=== PATIENT | female | born 1935 | race Caucasian/White ===

== ENCOUNTER → 2017-01-29 | Outpatient (CLI) | payer MEDICARE ==
[~2017-01-29] MED LIST: ACET325T14 PO; AZIT500T PO; BENA10TA2 PO; BENA5TAB2 PO; BISA10SU54 PR; CEFD300C37 PO; CHOL100018 PO; CITA20TA9 PO; GUAI600T53 PO; HYDR-3240 PO; IPRA3AMP INH; POLY17PO5 PO; PRED20TA PO; PRED5TAB19 PO; SIMV20TA3 PO
== END | disposition home or self-care (01) ==
LOC: CFH 08:31
PROVIDERS: ATTEND Internal Medicine
DX: Z12.31 Encounter for screening mammogram for malignant neoplasm of breast (principal); M81.0 Age-related osteoporosis without current pathological fracture; N95.9 Unspecified menopausal and perimenopausal disorder
CPT/HCPCS: 77080; G0202

== ENCOUNTER 2017-07-21 07:19 | Inpatient (IN) | payer MEDICARE ==
[~2017-07-21] VITALS: Ht 162.6 cm; Wt 68.6 kg
[~2017-07-21 07:19] MED LIST changes: +BISA10SU65 PR; +CALC-666 PO; +CHOL100012 PO; -CHOL100018 PO; +ENOX40SY4 SQ; -GUAI600T53 PO; +GUAI600T80 PO
[2017-07-21] MEDS ORDERED: PANTOPRAZOLE 80 MG in SODIUM CHLORIDE 0.9% 50 ML IVPB ONE (07:27)
[2017-07-21] MEDS ORDERED: PANTOPRAZOLE 80 MG in SODIUM CHLORIDE 0.9% 100 ML IV SCH (07:27)
[2017-07-21] MEDS ORDERED: SODIUM CHLORIDE 0.9% 1,000ML IVBOLUS ONE (07:30)
[2017-07-21] MEDS ORDERED: ONDANSETRON 2MG/ML, 2ML IVPush ONE (07:30)
[2017-07-21] MEDS ORDERED: SODIUM CHLORIDE FLUSH 10ML SYR IVF ONE (07:30)
[2017-07-21 07:56] LABS: MEAN CORPUSCULAR HEMOGLOBIN 29.9 pg (27.0-34.8); MEAN CORPUSCULAR HGB CONC 32.8 g/dL (32.4-35.8); MEAN PLATELET VOLUME 7.5 fL (7.4-10.4); PLATELET COUNT 644 x10^3/uL (130-400); RED BLOOD COUNT 4.42 x10^6/uL (3.82-5.3); RED CELL DISTRIBUTION WIDTH 15.6 % (9.6-15.2)
[2017-07-21 08:04] LABS: ALANINE AMINOTRANSFERASE 24 U/L (12-78); ALBUMIN 2.8 g/dL (3.4-5.0); ANION GAP 9 mmol/L (5-15); CALCIUM 8.9 mg/dL (8.5-10.1); CHLORIDE 102 mmol/L (98-107); CREATININE 1.28 mg/dL (0.55-1.02)
[2017-07-21 08:07] LABS: ALKALINE PHOSPHATASE 72 U/L (45-117); BILIRUBIN,TOTAL 1.4 mg/dL (0.2-1.0); INTERNATIONAL NORMALIZED RATIO 1.05 (0.93-1.1); PROTHROMBIN TIME 10.8 Seconds (9.6-11.5); TOTAL PROTEIN 6.3 g/dL (6.4-8.2)
[2017-07-21] MEDS ORDERED: ONDANSETRON 2MG/ML, 2ML ONE (08:09)
[2017-07-21 08:21] LABS: BASOPHILS # (AUTO) 0.01 x10^3/uL (0-0.1); BASOPHILS % (AUTO) 0 % (0-1); EOSINOPHILS % (AUTO) 0 % (1-7); LYMPHOCYTES # (AUTO) 0.68 x10^3/uL (1-3.4); LYMPHOCYTES % (AUTO) 4 % (22-44); MD SCAN; MONOCYTES # (AUTO) 0.34 x10^3/uL (0.2-0.8); MONOCYTES % (AUTO) 2 % (2-9); NEUTROPHILS # (AUTO) 17.35 x10^3/uL (1.8-6.8); NEUTROPHILS % (AUTO) 94 % (42-75)
[2017-07-21 08:24] LABS: CULTURE INDICATED? YES; MICROSCOPIC INDICATED
[2017-07-21] MEDS ORDERED: ACET650S21 PO (08:54)
[2017-07-21] MEDS ORDERED: ASPI-515 PO (08:54)
[2017-07-21] MEDS ORDERED: MULT-155 PO (08:54)
[2017-07-21] MEDS ORDERED: ONDA4TAB10 PO (08:54)
[2017-07-21] MEDS ORDERED: CEFTRIAXONE PMX 1GM/50ML 50 ML IVPB ONE (10:30)
[2017-07-21 11:24] VITALS: BP 119/90
[2017-07-21] MEDS ORDERED: POLYETHYLENE GLYCOL 17 GM PACKET PO PRN (13:00)
[2017-07-21] MEDS ORDERED: HYDROcodone/APAP 5/325 TABLET PO PRN (13:00)
[2017-07-21] MEDS: SUCRALFATE 1 GM/10 ML UDC PO SCH ×3 (13:00→20:27)
[2017-07-21] MEDS ORDERED: ACETAMINOPHEN 325 MG TABLET PO PRN (13:00)
[2017-07-21] MEDS ORDERED: hydrALAzine 20 MG/ML, 1ML IVPush PRN (13:00)
[2017-07-21] MEDS: SODIUM CHLORIDE 0.9% 1,000 ML IV SCH (13:16)
[2017-07-21] MEDS: CEFTRIAXONE PMX 1GM/50ML 50 ML IV SCH (13:16)
[2017-07-21 14:10] LABS: FREE T4 (FREE THYROXINE) 1.43 ng/dL (0.76-1.46); THYROID STIMULATING HORMONE 0.983 mIU/L (0.358-3.740)
[2017-07-21 14:26] LABS: HEMOGLOBIN A1C 5.3 % (4.2-6.3)
[2017-07-21 14:37] VITALS: BP 111/76
[2017-07-21] MEDS ORDERED: LIDOCAINE 2%, 20ML ONE (14:55)
[2017-07-21 17:06] LABS: CELLS COUNTED 18
[2017-07-21] MEDS: FLUCONAZOLE 200 MG/100 ML 100 ML IV SCH (17:46)
[2017-07-21 20:10] VITALS: BP 125/95
[2017-07-21] MEDS: CITALOPRAM 20 MG TABLET PO SCH (20:16)
[2017-07-21] MEDS: SIMVASTATIN 20 MG TABLET PO SCH (20:16)
[2017-07-21] MEDS: BENAZEPRIL 5 MG TABLET PO SCH (20:16)
[2017-07-21] MEDS: PANTOPRAZOLE 40 MG IV IVPush SCH (20:27)
[2017-07-21] MEDS ORDERED: ALBUTEROL/IPRATROPIUM 2.5MG/0.5MG, 3 ML ONE (20:59)
[2017-07-21] MEDS ORDERED: ALBUTEROL/IPRATROPIUM 2.5MG/0.5MG, 3 ML NPPB PRN (21:00)
[2017-07-21] MEDS: ALBUTEROL/IPRATROPIUM 2.5MG/0.5MG, 3 ML NPPB SCH (21:01)
[2017-07-22 01:14] VITALS: BP 145/90
[2017-07-22] MEDS: SODIUM CHLORIDE 0.9% 1,000 ML IV SCH ×2 (03:58→18:50)
[2017-07-22] MEDS: ONDANSETRON 2MG/ML, 2ML IVPush PRN ×2 (05:22→10:30)
[2017-07-22 05:56] LABS: CHLORIDE 105 mmol/L (98-107)
[2017-07-22 06:00] LABS: MEAN CORPUSCULAR HEMOGLOBIN 30.3 pg (27.0-34.8); MEAN CORPUSCULAR HGB CONC 32.9 g/dL (32.4-35.8); MEAN CORPUSCULAR VOLUME 92.1 fL (80-100); MEAN PLATELET VOLUME 7.5 fL (7.4-10.4); PLATELET COUNT 488 x10^3/uL (130-400); RED BLOOD COUNT 3.95 x10^6/uL (3.82-5.3); RED CELL DISTRIBUTION WIDTH 16.1 % (9.6-15.2)
[2017-07-22 06:19] LABS: ALANINE AMINOTRANSFERASE 19 U/L (12-78); ALBUMIN 2.5 g/dL (3.4-5.0); ALKALINE PHOSPHATASE 76 U/L (45-117); ANION GAP 11 mmol/L (5-15); BILIRUBIN,TOTAL 1.3 mg/dL (0.2-1.0); CALCIUM 7.5 mg/dL (8.5-10.1); CREATININE 1.66 mg/dL (0.55-1.02); TOTAL PROTEIN 5.4 g/dL (6.4-8.2)
[2017-07-22 06:35] LABS: MD YES
[2017-07-22 06:39] LABS: BAND#(MANUAL) 0.47 x10^3/uL; BANDS%(MANUAL) 2 % (0-7); LYMPH#(MANUAL) 0.71 x10^3/uL (1-3.4); LYMPHS% (MANUAL) 3 % (22-44); MONOS#(MANUAL) 1.19 x10^3/uL (0.3-2.7); MONOS% (MANUAL) 5 % (2-9); SEG#(MANUAL) 21.33 x10^3/uL (1.8-6.8); SEGS% (MANUAL) 90 % (42-75)
[2017-07-22 06:41] LABS: <PLATELET ESTIMATE> INCREASED; <PLT MORPHOLOGY> NORMAL PLT MORPH; POLYCHROMASIA 1+
[2017-07-22] MEDS: METRONIDAZOLE PMX 500MG/100ML 100 ML IV SCH ×3 (07:30→18:50)
[2017-07-22 07:36] VITALS: BP 138/93
[2017-07-22] MEDS: ALBUTEROL/IPRATROPIUM 2.5MG/0.5MG, 3 ML NPPB SCH ×4 (07:40→19:05)
[2017-07-22] MEDS: SUCRALFATE 1 GM/10 ML UDC PO SCH ×4 (10:22→20:47)
[2017-07-22] MEDS: PANTOPRAZOLE 40 MG IV IVPush SCH ×2 (10:22→20:47)
[2017-07-22] MEDS: morphine SULFATE 10 MG/ML, 1ML IVPush PRN ×3 (10:22→23:29)
[2017-07-22] MEDS: MAALOX/HYOSCYAMINE/LIDOCAINE 45 ML BTL PO PRN ×2 (10:23→14:59)
[2017-07-22] MEDS: CEFTRIAXONE PMX 1GM/50ML 50 ML IV SCH (13:30)
[2017-07-22 14:02] VITALS: BP 127/82
[2017-07-22 20:45] VITALS: BP 101/72
[2017-07-22] MEDS: BENAZEPRIL 5 MG TABLET PO SCH (20:47)
[2017-07-22] MEDS: CITALOPRAM 20 MG TABLET PO SCH (20:47)
[2017-07-22] MEDS: SIMVASTATIN 20 MG TABLET PO SCH (20:48)
[2017-07-23] MEDS: ONDANSETRON 2MG/ML, 2ML IVPush PRN ×2 (02:02→11:10)
[2017-07-23] MEDS: MAALOX/HYOSCYAMINE/LIDOCAINE 45 ML BTL PO PRN (02:02)
[2017-07-23 02:11] VITALS: BP 140/95
[2017-07-23] MEDS: METRONIDAZOLE PMX 500MG/100ML 100 ML IV SCH ×3 (02:17→19:22)
[2017-07-23] MEDS: SODIUM CHLORIDE 0.9% 1,000 ML IV SCH (04:22)
[2017-07-23] MEDS: morphine SULFATE 10 MG/ML, 1ML IVPush PRN (04:22)
[2017-07-23 04:54] LABS: MEAN CORPUSCULAR HEMOGLOBIN 30.5 pg (27.0-34.8); MEAN CORPUSCULAR HGB CONC 33.4 g/dL (32.4-35.8); MEAN CORPUSCULAR VOLUME 91.5 fL (80-100); MEAN PLATELET VOLUME 7.7 fL (7.4-10.4); PLATELET COUNT 377 x10^3/uL (130-400); RED BLOOD COUNT 3.44 x10^6/uL (3.82-5.3); RED CELL DISTRIBUTION WIDTH 16.9 % (9.6-15.2)
[2017-07-23 04:58] LABS: ALANINE AMINOTRANSFERASE 16 U/L (12-78); ALBUMIN 2.5 g/dL (3.4-5.0); ANION GAP 9 mmol/L (5-15); CHLORIDE 111 mmol/L (98-107)
[2017-07-23 05:01] LABS: ALKALINE PHOSPHATASE 77 U/L (45-117); BILIRUBIN,TOTAL 1.1 mg/dL (0.2-1.0); CREATININE 1.21 mg/dL (0.55-1.02); TOTAL PROTEIN 5.6 g/dL (6.4-8.2)
[2017-07-23 05:43] LABS: BASOPHILS # (AUTO) 0.01 x10^3/uL (0-0.1); BASOPHILS % (AUTO) 0 % (0-1); EOSINOPHILS % (AUTO) 0 % (1-7); LYMPHOCYTES # (AUTO) 0.59 x10^3/uL (1-3.4); LYMPHOCYTES % (AUTO) 3 % (22-44); MD SCAN; MONOCYTES # (AUTO) 0.13 x10^3/uL (0.2-0.8); MONOCYTES % (AUTO) 1 % (2-9); NEUTROPHILS # (AUTO) 22.25 x10^3/uL (1.8-6.8); NEUTROPHILS % (AUTO) 97 % (42-75)
[2017-07-23] MEDS: SUCRALFATE 1 GM/10 ML UDC PO SCH ×4 (07:00→19:56)
[2017-07-23] MEDS: ALBUTEROL/IPRATROPIUM 2.5MG/0.5MG, 3 ML NPPB SCH (07:00)
[2017-07-23 07:36] VITALS: BP 157/100
[2017-07-23 09:30] VITALS: BP 132/90
[2017-07-23] MEDS: PANTOPRAZOLE 40 MG IV IVPush SCH ×2 (10:17→19:53)
[2017-07-23] MEDS: DEXTROSE 5% 1,000 ML IV SCH (11:10)
[2017-07-23] MEDS ORDERED: LACTULOSE 3.3 GM/5 ML ORAL.SOL RC ONE (11:30)
[2017-07-23] MEDS: CEFTRIAXONE PMX 1GM/50ML 50 ML IV SCH (13:14)
[2017-07-23 13:33] VITALS: BP 136/87
[2017-07-23] MEDS ORDERED: PROPOFOL 10 MG/ML, 20ML ONE (14:33)
[2017-07-23] MEDS ORDERED: FENTANYL PF 100 MCG/2ML IV PRN (15:30)
[2017-07-23] MEDS ORDERED: HYDROcodone/APAP 7.5-325MG/15ML UDC PO PRN (15:30)
[2017-07-23] MEDS ORDERED: ACETAMINOPHEN 325 MG TABLET PO PRN (15:30)
[2017-07-23] MEDS ORDERED: ONDANSETRON 2MG/ML, 2ML IVPush PRN (15:30)
[2017-07-23] MEDS ORDERED: OXYcodone 5 MG/5 ML ORAL.SOL UDC PO PRN (15:30)
[2017-07-23] MEDS: FLUCONAZOLE 200 MG/100 ML 100 ML IV SCH (18:00)
[2017-07-23] MEDS: BENAZEPRIL 5 MG TABLET PO SCH (19:54)
[2017-07-23] MEDS: SIMVASTATIN 20 MG TABLET PO SCH (19:54)
[2017-07-23] MEDS: CITALOPRAM 20 MG TABLET PO SCH (19:54)
[2017-07-23 20:00] VITALS: BP 118/84
[2017-07-24 01:53] VITALS: BP 114/64
[2017-07-24] MEDS: METRONIDAZOLE PMX 500MG/100ML 100 ML IV SCH ×3 (03:23→20:40)
[2017-07-24] MEDS: TEMAZEPAM 15 MG CAPSULE PO PRN (03:26)
[2017-07-24 07:09] LABS: MEAN CORPUSCULAR HEMOGLOBIN 29.8 pg (27.0-34.8); MEAN CORPUSCULAR HGB CONC 32.7 g/dL (32.4-35.8); MEAN CORPUSCULAR VOLUME 91.3 fL (80-100); MEAN PLATELET VOLUME 7.3 fL (7.4-10.4); PLATELET COUNT 282 x10^3/uL (130-400); RED BLOOD COUNT 2.96 x10^6/uL (3.82-5.3); RED CELL DISTRIBUTION WIDTH 17.1 % (9.6-15.2)
[2017-07-24 07:16] LABS: ALANINE AMINOTRANSFERASE 15 U/L (12-78); ALBUMIN 2.2 g/dL (3.4-5.0); ANION GAP 5 mmol/L (5-15); CALCIUM 6.9 mg/dL (8.5-10.1); CHLORIDE 111 mmol/L (98-107)
[2017-07-24 07:18] LABS: ALKALINE PHOSPHATASE 71 U/L (45-117); TOTAL PROTEIN 4.7 g/dL (6.4-8.2)
[2017-07-24 07:31] LABS: CREATININE 0.74 mg/dL (0.55-1.02)
[2017-07-24 07:32] VITALS: BP 134/79
[2017-07-24 08:26] LABS: BASOPHILS % (AUTO) 0 % (0-1); EOSINOPHILS # (AUTO) 0.01 x10^3/uL (0-0.4); EOSINOPHILS % (AUTO) 0 % (1-7); LYMPHOCYTES # (AUTO) 0.63 x10^3/uL (1-3.4); LYMPHOCYTES % (AUTO) 4 % (22-44); MD SCAN; MONOCYTES # (AUTO) 0.04 x10^3/uL (0.2-0.8); MONOCYTES % (AUTO) 0 % (2-9); NEUTROPHILS # (AUTO) 15.72 x10^3/uL (1.8-6.8); NEUTROPHILS % (AUTO) 96 % (42-75)
[2017-07-24] MEDS: SUCRALFATE 1 GM/10 ML UDC PO SCH ×4 (08:56→20:15)
[2017-07-24] MEDS: PANTOPRAZOLE 40 MG IV IVPush SCH ×2 (09:16→20:58)
[2017-07-24 09:40] VITALS: BP 130/90
[2017-07-24] MEDS: DEXTROSE 5% 1,000 ML IV SCH (10:15)
[2017-07-24] MEDS: MICAFUNGIN 100 MG in SODIUM CHLORIDE 0.9% 100 ML IV SCH (10:21)
[2017-07-24] MEDS: CEFTRIAXONE PMX 1GM/50ML 50 ML IV SCH (13:18)
[2017-07-24 13:20] VITALS: BP 154/86
[2017-07-24] MEDS: POTASSIUM PHOSPHATE 44 MEQ in SODIUM CHLORIDE 0.9% 500 ML IV SCH (15:57)
[2017-07-24] MEDS ORDERED: LACTULOSE 3.3 GM/5 ML ORAL.SOL RC ONE ×2 (16:30→17:00)
[2017-07-24] MEDS ORDERED: ALBUTEROL SULFATE 2.5MG/0.5ML NPPB PRN (17:00)
[2017-07-24] MEDS ORDERED: ALBUTEROL/IPRATROPIUM 2.5MG/0.5MG, 3 ML NPPB PRN (17:30)
[2017-07-24] MEDS: SIMETHICONE 80 MG CHEW TAB PO SCH ×2 (18:37→22:00)
[2017-07-24 20:20] VITALS: BP 119/80
[2017-07-24] MEDS: SIMVASTATIN 20 MG TABLET PO SCH (20:41)
[2017-07-24] MEDS: CITALOPRAM 20 MG TABLET PO SCH (20:42)
[2017-07-24] MEDS: BENAZEPRIL 5 MG TABLET PO SCH (20:57)
[2017-07-24] MEDS: ALBUTEROL/IPRATROPIUM 2.5MG/0.5MG, 3 ML NPPB SCH (21:00)
[2017-07-25] MEDS: POTASSIUM PHOSPHATE 44 MEQ in SODIUM CHLORIDE 0.9% 500 ML IV SCH (00:17)
[2017-07-25 02:00] VITALS: BP 135/84
[2017-07-25] MEDS: METRONIDAZOLE PMX 500MG/100ML 100 ML IV SCH ×3 (03:49→21:00)
[2017-07-25] MEDS: DEXTROSE 5% 1,000 ML IV SCH ×2 (03:52→15:11)
[2017-07-25 06:33] LABS: MEAN CORPUSCULAR HEMOGLOBIN 30.1 pg (27.0-34.8); MEAN CORPUSCULAR HGB CONC 32.9 g/dL (32.4-35.8); MEAN CORPUSCULAR VOLUME 91.3 fL (80-100); MEAN PLATELET VOLUME 7.5 fL (7.4-10.4); PLATELET COUNT 271 x10^3/uL (130-400); RED BLOOD COUNT 2.92 x10^6/uL (3.82-5.3); RED CELL DISTRIBUTION WIDTH 16.2 % (9.6-15.2)
[2017-07-25 06:34] LABS: ALBUMIN 2.1 g/dL (3.4-5.0); ANION GAP 7 mmol/L (5-15); CALCIUM 7.2 mg/dL (8.5-10.1); CHLORIDE 110 mmol/L (98-107)
[2017-07-25] MEDS: ALBUTEROL/IPRATROPIUM 2.5MG/0.5MG, 3 ML NPPB SCH ×3 (06:49→19:53)
[2017-07-25 06:50] LABS: ALANINE AMINOTRANSFERASE 12 U/L (12-78); ALKALINE PHOSPHATASE 71 U/L (45-117); BILIRUBIN,TOTAL 1.1 mg/dL (0.2-1.0); CREATININE 0.52 mg/dL (0.55-1.02); TOTAL PROTEIN 4.8 g/dL (6.4-8.2)
[2017-07-25 07:05] LABS: BASOPHILS % (AUTO) 0 % (0-1); EOSINOPHILS # (AUTO) 0.04 x10^3/uL (0-0.4); EOSINOPHILS % (AUTO) 0 % (1-7); LYMPHOCYTES # (AUTO) 0.69 x10^3/uL (1-3.4); LYMPHOCYTES % (AUTO) 4 % (22-44); MD SCAN; MONOCYTES # (AUTO) 0.58 x10^3/uL (0.2-0.8); MONOCYTES % (AUTO) 4 % (2-9); NEUTROPHILS # (AUTO) 14.52 x10^3/uL (1.8-6.8); NEUTROPHILS % (AUTO) 92 % (42-75)
[2017-07-25 07:20] VITALS: BP 122/81
[2017-07-25 08:51] LABS: CHOL/HDL RATIO 1.8; LDL/HDL RATIO 0.4 (0.5-3.0)
[2017-07-25] MEDS: SIMETHICONE 80 MG CHEW TAB PO SCH ×3 (09:51→22:31)
[2017-07-25] MEDS: MICAFUNGIN 100 MG in SODIUM CHLORIDE 0.9% 100 ML IV SCH (09:51)
[2017-07-25] MEDS: SUCRALFATE 1 GM/10 ML UDC PO SCH ×4 (09:52→22:30)
[2017-07-25] MEDS: PANTOPRAZOLE 40 MG IV IVPush SCH ×2 (09:52→22:31)
[2017-07-25] MEDS: CEFTRIAXONE PMX 1GM/50ML 50 ML IV SCH (13:37)
[2017-07-25 13:44] VITALS: BP 115/75
[2017-07-25 18:47] VITALS: BP 144/86
[2017-07-25] MEDS: BENAZEPRIL 5 MG TABLET PO SCH (22:20)
[2017-07-25] MEDS: CITALOPRAM 20 MG TABLET PO SCH (22:31)
[2017-07-25] MEDS: SIMVASTATIN 20 MG TABLET PO SCH (22:31)
[2017-07-26 03:25] VITALS: BP 109/73
[2017-07-26] MEDS: DEXTROSE 5% 1,000 ML IV SCH ×2 (04:00→20:30)
[2017-07-26] MEDS: METRONIDAZOLE PMX 500MG/100ML 100 ML IV SCH ×3 (05:23→23:47)
[2017-07-26 05:59] LABS: BASOPHILS # (AUTO) 0.05 x10^3/uL (0-0.1); BASOPHILS % (AUTO) 0 % (0-1); EOSINOPHILS # (AUTO) 0.17 x10^3/uL (0-0.4); EOSINOPHILS % (AUTO) 1 % (1-7); LYMPHOCYTES % (AUTO) 5 % (22-44); MD NO; MEAN CORPUSCULAR HEMOGLOBIN 29.9 pg (27.0-34.8); MEAN CORPUSCULAR VOLUME 90.9 fL (80-100); MEAN PLATELET VOLUME 7.7 fL (7.4-10.4); MONOCYTES % (AUTO) 4 % (2-9); NEUTROPHILS # (AUTO) 12.89 x10^3/uL (1.8-6.8); NEUTROPHILS % (AUTO) 90 % (42-75); PLATELET COUNT 280 x10^3/uL (130-400); RED BLOOD COUNT 3.14 x10^6/uL (3.82-5.3); RED CELL DISTRIBUTION WIDTH 16.1 % (9.6-15.2)
[2017-07-26 06:21] LABS: ALBUMIN 1.9 g/dL (3.4-5.0); ANION GAP 5 mmol/L (5-15); CALCIUM 7.9 mg/dL (8.5-10.1); CHLORIDE 107 mmol/L (98-107)
[2017-07-26 06:25] LABS: ALANINE AMINOTRANSFERASE 10 U/L (12-78); ALKALINE PHOSPHATASE 73 U/L (45-117); BILIRUBIN,TOTAL 0.9 mg/dL (0.2-1.0); CREATININE 0.55 mg/dL (0.55-1.02); TOTAL PROTEIN 4.7 g/dL (6.4-8.2)
[2017-07-26 08:30] VITALS: BP 102/62
[2017-07-26] MEDS: MICAFUNGIN 100 MG in SODIUM CHLORIDE 0.9% 100 ML IV SCH (09:06)
[2017-07-26] MEDS: PANTOPRAZOLE 40 MG IV IVPush SCH ×2 (09:07→20:29)
[2017-07-26] MEDS: SUCRALFATE 1 GM/10 ML UDC PO SCH ×4 (09:07→20:29)
[2017-07-26] MEDS: SIMETHICONE 80 MG CHEW TAB PO SCH ×3 (09:07→20:29)
[2017-07-26] MEDS: ALBUTEROL/IPRATROPIUM 2.5MG/0.5MG, 3 ML NPPB SCH ×3 (10:40→20:15)
[2017-07-26] MEDS: CEFTRIAXONE PMX 1GM/50ML 50 ML IV SCH (14:12)
[2017-07-26 14:30] VITALS: BP 104/73
[2017-07-26 20:18] VITALS: BP 107/74
[2017-07-26] MEDS: BENAZEPRIL 5 MG TABLET PO SCH (20:29)
[2017-07-26] MEDS: SIMVASTATIN 20 MG TABLET PO SCH (20:29)
[2017-07-26] MEDS: TEMAZEPAM 15 MG CAPSULE PO PRN (20:29)
[2017-07-26] MEDS: CITALOPRAM 20 MG TABLET PO SCH (20:29)
[2017-07-27] MEDS: ALBUTEROL/IPRATROPIUM 2.5MG/0.5MG, 3 ML NPPB SCH ×4 (02:05→21:29)
[2017-07-27 02:07] VITALS: BP 142/87
[2017-07-27] MEDS: SUCRALFATE 1 GM/10 ML UDC PO SCH ×4 (06:36→20:41)
[2017-07-27 08:16] VITALS: BP 118/82
[2017-07-27] MEDS: SIMETHICONE 80 MG CHEW TAB PO SCH ×3 (09:16→20:42)
[2017-07-27] MEDS: METRONIDAZOLE PMX 500MG/100ML 100 ML IV SCH ×3 (09:16→23:51)
[2017-07-27] MEDS: PANTOPRAZOLE 40 MG IV IVPush SCH ×2 (09:16→20:41)
[2017-07-27] MEDS: MICAFUNGIN 100 MG in SODIUM CHLORIDE 0.9% 100 ML IV SCH (11:21)
[2017-07-27] MEDS: CEFTRIAXONE PMX 1GM/50ML 50 ML IV SCH (13:00)
[2017-07-27 13:38] VITALS: BP 127/85
[2017-07-27 20:15] VITALS: BP 125/86
[2017-07-27] MEDS: CITALOPRAM 20 MG TABLET PO SCH (20:41)
[2017-07-27] MEDS: SIMVASTATIN 20 MG TABLET PO SCH (20:42)
[2017-07-27] MEDS: BENAZEPRIL 5 MG TABLET PO SCH (20:42)
[2017-07-27] MEDS: DEXTROSE 5% 1,000 ML IV SCH (20:42)
[2017-07-28 01:41] VITALS: BP 109/74
[2017-07-28] MEDS: SUCRALFATE 1 GM/10 ML UDC PO SCH ×4 (06:30→20:48)
[2017-07-28 06:59] VITALS: BP 118/80
[2017-07-28] MEDS: SIMETHICONE 80 MG CHEW TAB PO SCH ×3 (08:45→20:49)
[2017-07-28] MEDS: PANTOPRAZOLE 40 MG IV IVPush SCH (08:45)
[2017-07-28] MEDS: METRONIDAZOLE PMX 500MG/100ML 100 ML IV SCH ×3 (09:08→23:45)
[2017-07-28] MEDS: MICAFUNGIN 100 MG in SODIUM CHLORIDE 0.9% 100 ML IV SCH (10:23)
[2017-07-28] MEDS: ALBUTEROL/IPRATROPIUM 2.5MG/0.5MG, 3 ML NPPB SCH ×3 (11:30→19:41)
[2017-07-28 12:57] VITALS: BP 113/80
[2017-07-28] MEDS ORDERED: Maalox/Hyoscyamine/Lidocaine PO (13:42)
[2017-07-28] MEDS ORDERED: MICA100V3 IV (13:42)
[2017-07-28] MEDS ORDERED: OMEP-110 PO (13:42)
[2017-07-28] MEDS ORDERED: SUCR1ORA5 PO (13:42)
[2017-07-28] MEDS ORDERED: SIME80TA16 PO (13:42)
[2017-07-28] MEDS ORDERED: POLY17PO5 PO (13:42)
[2017-07-28] MEDS: CEFTRIAXONE PMX 1GM/50ML 50 ML IV SCH (13:43)
[2017-07-28] MEDS ORDERED: ASPI-515 PO (13:49)
[2017-07-28] MEDS ORDERED: CLOP75TA52 PO (13:49)
[2017-07-28 18:49] VITALS: BP 141/93
[2017-07-28] MEDS: DEXTROSE 5% 1,000 ML IV SCH (19:00)
[2017-07-28] MEDS: PANTOPROZOLE 40MG TABLET PO SCH (20:49)
[2017-07-28] MEDS: CITALOPRAM 20 MG TABLET PO SCH (20:49)
[2017-07-28] MEDS: BENAZEPRIL 5 MG TABLET PO SCH (20:49)
[2017-07-28] MEDS: SIMVASTATIN 20 MG TABLET PO SCH (20:49)
[2017-07-29 00:27] VITALS: BP 141/84
[2017-07-29] MEDS: morphine SULFATE 10 MG/ML, 1ML IVPush PRN (02:09)
[2017-07-29] MEDS: SUCRALFATE 1 GM/10 ML UDC PO SCH ×2 (06:23→11:42)
[2017-07-29] MEDS: ALBUTEROL/IPRATROPIUM 2.5MG/0.5MG, 3 ML NPPB SCH (06:52)
[2017-07-29 07:07] VITALS: BP 131/86
[2017-07-29] MEDS: METRONIDAZOLE PMX 500MG/100ML 100 ML IV SCH (08:45)
[2017-07-29] MEDS: MICAFUNGIN 100 MG in SODIUM CHLORIDE 0.9% 100 ML IV SCH (11:16)
[2017-07-29] MEDS: SIMETHICONE 80 MG CHEW TAB PO SCH (11:17)
[2017-07-29] MEDS: PANTOPROZOLE 40MG TABLET PO SCH (11:17)
[2017-07-29 11:50] VITALS: BP 140/92
== END 2017-07-29 13:30 | DRG 871 ==
LOC: ED 07:47 → 3NE 10:25
PROVIDERS: ADMIT Internal Medicine; ATTEND Internal Medicine
PROC: 0T9B70Z Drainage of Bladder with Drainage Device, Via Natural or Artificial Opening (ICD-10-PCS; 2017-07-21)
PROC: 0W9G3ZZ Drainage of Peritoneal Cavity, Percutaneous Approach (ICD-10-PCS; principal; 2017-07-22)
PROC: 0DJ08ZZ Inspection of Upper Intestinal Tract, Via Natural or Artificial Opening Endoscopic (ICD-10-PCS; 2017-07-23)
PROC: BD47ZZZ Ultrasonography of Gastrointestinal Tract (ICD-10-PCS; 2017-07-23)
DX: A41.9 Sepsis, unspecified organism (principal); E43 Unspecified severe protein-calorie malnutrition; N17.0 Acute kidney failure with tubular necrosis; G93.40 Encephalopathy, unspecified; J96.10 Chronic respiratory failure, unspecified whether with hypoxia or hypercapnia; K22.6 Gastro-esophageal laceration-hemorrhage syndrome; K85.00 Idiopathic acute pancreatitis without necrosis or infection; K92.0 Hematemesis; E87.0 Hyperosmolality and hypernatremia; E87.2 Acidosis; R18.8 Other ascites; N30.90 Cystitis, unspecified without hematuria; E11.65 Type 2 diabetes mellitus with hyperglycemia; E86.0 Dehydration; J44.9 Chronic obstructive pulmonary disease, unspecified; D35.01 Benign neoplasm of right adrenal gland; D35.02 Benign neoplasm of left adrenal gland; E78.5 Hyperlipidemia, unspecified; E83.39 Other disorders of phosphorus metabolism; E89.0 Postprocedural hypothyroidism; I10 Essential (primary) hypertension; I70.0 Atherosclerosis of aorta; M81.0 Age-related osteoporosis without current pathological fracture; Z66 Do not resuscitate; Z80.49 Family history of malignant neoplasm of other genital organs; Z80.7 Family history of other malignant neoplasms of lymphoid, hematopoietic and related tissues; Z87.19 Personal history of other diseases of the digestive system; Z90.49 Acquired absence of other specified parts of digestive tract; Z87.891 Personal history of nicotine dependence; Z90.710 Acquired absence of both cervix and uterus; Z99.81 Dependence on supplemental oxygen; Z68.26 Body mass index [BMI] 26.0-26.9, adult
CPT/HCPCS: 36415; 49083; 71045; 74176; 74177; 78226; 80053; 80061; 81001; 82042; 82247; 82962; 83036; 83605; 83690; 83735; 84100; 84439; 84443; 85025; 85610; 85730; 86304; 86850; 86900; 87040; 87070; 87086; 87205; 88112; 88305; 89051; 93005; 93978; 94640; J0696; J2248; J2405; J2704; J3490; J7070; J7620; A9537; C9113; C9898; J1450; J2270; J7030; J7040